=== PATIENT | male | born 1995 | race African-American/Black ===

== ENCOUNTER 2024-08-15 01:39 | Emergency (ER) | payer OTHER ==
[~2024-08-15] VITALS: Ht 182.9 cm; Wt 89.6 kg
--- NOTE | 2024-08-15 03:33 | DVH ---
CHEST RADIOGRAPH Indication: CHEST PAIN Technique: Frontal and lateral view of the chest was obtained Comparison: None FINDINGS: Lines and Tubes: None Lungs: Clear Pleura: No effusion. No pneumothorax. Cardiomediastinal contours: Unremarkable Bones: Unremarkable IMPRESSION: No evidence of acute disease.
[2024-08-15] MEDS ORDERED: TIZA-142 PO (04:23)
[2024-08-15] MEDS ORDERED: METH4PAK PO (04:23)
--- NOTE | 2024-08-15 04:24 | ED.PDOC ---
SOB-HPI HPI Comments C/C of difficulty breathing on inhalation. 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 Pt breathing even and unlabored on room air, satting at 98%, speaking in clear even sentences. Denies cough, congestion, runny nose, or anyone sick at home. VSS. NKDA. Denies PMH. Chief Complaint: Shortness of Breath Time Seen by MD: 02:08 Reviewed notes: Nurses Notes, Medications, Allergies Information Source: Patient Mode of Arrival: Ambulatory Past Medical History PAST MEDICAL HISTORY: Denies Surgical History: Denies all surgeries Constitutional: denies: chills, diaphoresis, fatigue, fever, malaise, sweats, weakness, others EENTM: denies: blurred vision, double vision, ear bleeding, ear discharge, ear drainage, ear pain, ear ringing, eye pain, eye redness, hearing loss, mouth pain, mouth swelling, nasal discharge, nose bleeding, nose congestion, nose pain, photophobia, tearing, throat pain, throat swelling, voice changes, others Respiratory: denies: cough, hemoptysis, orthopnea, SOB at rest, shortness of breath, SOB with excertion, stridor, wheezing, others Cardiovascular: denies: chest pain, dizzy spells, diaphoresis, Dyspnea on exertion, edema, irregular heart beat, left arm pain, lightheadedness, palpitations, PND, syncope, others Gastrointestinal: denies: abdomen distended, abdominal pain, blood streaked bowels, constipated, diarrhea, dysphagia, difficulty swallowing, hematemesis, melena, nausea, poor appetite, poor fluid intake, rectal bleeding, rectal pain, vomiting, others Genitourinary: denies: burning, dysuria, flank pain, frequency, hematuria, incontinence, penile discharge, penile sore, pain, testicle pain, testicle swelling, urgency, others Neurological: denies: dizziness, fainting, headache, left sided numbness, left sided weakness, numbness, paresthesia, pre-existing deficit, right sided numbness, right sided weakness, seizure, speech problems, tingling, tremors, weakness, others Musculoskeletal: reports: back pain; denies: gout, joint pain, joint swelling, muscle pain, muscle stiffness, neck pain, others Integumetry: denies: bruises, change in color, change in hair/nails, dryness, laceration, lesions, lumps, rash, wounds, others Allergic/Immunocompromised: denies: Difficulty Healing, Frequent Infections, Hives, Itching, others Hematologic/Lymphatic: denies: anemia, blood clots, easy bleeding, easy bruising, swollen glands, others Endocrine: denies: excessive hunger, excessive sweating, excessive thirst, excessive urination, flushing, intolerance to cold, intolerance to heat, unexplained weight gain, unexplained weight loss, others Psychiatric: denies: anxiety, bipolar disorder, depression, hopeless, panic disorder, schizophrenia, sleepless, suicidal, others Physical Exam General Appearance: No Apparent Distress, Normal HEENT: Pharynx Normal Neck: Full Range of Motion, Non-Tender Respiratory: Chest Non-Tender, Lungs Clear, No Respiratory Distress, Normal Breath Sounds Cardiovascular: No Edema, No JVD, No Murmur, No Gallop, Normal Peripheral Pulse s, Regular Rate/Rhythm Breast Exam: Deferred Gastrointestinal: No Organomegaly, Non Tender, No Pulsatile Mass, Normal Bowel Sounds, Soft Genitalia: Deferred Pelvic: Deferred Rectal: Deferred Extremities: Normal capillary refill, Normal inspection, Normal range of motion, Non-tender, No pedal edema Musculoskeletal : Location: Bilateral Extremity Location: Back (MODERATE TENDERNESS PALPATED OVER T4 THROUGH T6 PARASPINAL MUSCLES AND LEFT SCAPULA NO NOTED ABRASIONS LESIONS OR LACERATIONS WITHOUT STEP-OFFS OR CREPITUS) Apperance: Normal Neurologic: Alert, director marketing analytics II-XII nml as Tested, No Motor Deficits, Normal Affect, Normal Mood, No Sensory Deficits Cerebellar Function: Normal Reflexes: Normal Skin: Dry, Normal Color, Warm Lymphatic: No Adenopathy Was a procedure done? Was a procedure done?: No Differential Dx Differential Diagnosis: Pneumonia X-Ray, Labs, Meds, VS Vital Signs Date Time Temp Pulse Resp B/P (MAP) Pulse Ox O2 Delivery O2 Flow Rate FiO2 08/15/24 01:39 97.5 70 16 148/90 (109) 98 97.5 X-Ray, Labs, Meds, VS Comment CHEST X-RAY SHOWS NO CARDIOPULMONARY ACUTE OR CHRONIC FINDINGS. LIKELY MUSCLE STRAIN. TRIAL MUSCLE RELAXER AND MEDROL DOSEPAK SCRIPT TO PHARMACY ADVISED ON RISKS AND BENEFITS TAKE MEDICATIONS PRESCRIBED. DISCUSSED ALTERNATING BETWEEN ICE AND HEAT. YOUR PCP IN 2-3 DAYS NECESSARY CONSIDER FURTHER IMAGING SUCH MRI IF SYMPTOMS PERSIST. ER RETURN PRECAUTIONS GIVEN PATIENT INDICATES UNDERSTANDING AND AGREES WITH DISCHARGE PLAN OF CARE. Time of 1ST Reevaluation: 03:00 Reevaluation 1ST: Unchanged Time of 2ND Reevaluation: 04:22 Reevaluation 2ND: Improved Patient Education/Counseling: Diagnosis, Treatment, Prognosis, Need For Follow Up Family Education/Counseling: No Family Present Departure 1 Departure Time of Disposition: 04:22 Impression: Primary Impression: Strain of muscle and tendon of back wall of thorax, initial encounter Disposition: HOME / SELF CARE / HOMELESS Condition: Stable e-Prescriptions Tizanidine Hydrochloride (Tizanidine Hcl) 4 Mg Tab 4 MG PO BID PRN for 6 Days, #12 TAB Prov: JESSICA PELAEZ 08/15/24 Methylprednisolone (Medrol Dosepak) 4 Mg Osei 4 MG PO UD for 6 Days, #21 TAB UAD Prov: JESSICA PELAEZ 08/15/24 Discharged With: Self Critical Care Note Critical Care Time?: No Stability Stability form required: No Heart Score Heart Score: Heart Score Response (Comments) Value History N/A 0 EKG N/A 0 Age <45 0 Risk Factors N/A 0 Troponin N/A 0 Total 0 JESSICA PELAEZ Aug 15, 2024 04:24
[2024-08-15] MEDS: OXYCODONE W/ ACETAMINOPHEN 5/325MG TABLET PO ONE (05:41)
[2024-08-15 05:43] VITALS: BP 149/90; PULSE 59; RESP 14; TEMP 97.7; O2SAT 97
== END 2024-08-15 05:46 | disposition home or self-care (01) ==
LOC: ER 01:39
DX: S29.012A Strain of muscle and tendon of back wall of thorax, initial encounter (principal); R06.00 Dyspnea, unspecified; X50.0XXA Overexertion from strenuous movement or load, initial encounter; Y93.89 Activity, other specified; Y92.89 Other specified places as the place of occurrence of the external cause; Y99.8 Other external cause status
CPT/HCPCS: 71046